=== PATIENT | male | born 1985 | race Caucasian/White ===

== ENCOUNTER 2016-10-05 14:07 | Emergency (ER) | payer BC ==
[~2016-10-05] VITALS: Ht 188 cm; Wt 221.6 kg
[2016-10-05 14:19] VITALS: Ht 188 cm; Wt 221.6 kg
--- NOTE | 2016-10-05 14:23 | ERPDOC ---
Departure Disposition Decision Date: Oct 05, 2016 Disposition Decision Time: 14:21 Disposition: 01 DISCHARGED HOME, SELF-CARE Impression Impression Impression: Primary Impression: Dental abscess Severity: Moderate Condition: Stable Seen By: Mid-level only Patient Instructions: Dental Abscess (ED) Problems/Meds/Labs Reviewed?: Yes Medications reviewed and manag: Yes Additional Instructions: Take the Clindamycin as prescribed. Stop the Amoxicillin. May apply warm compresses to the area as well. If this is not improving at all then please return to ER. Follow up with your dentist next week for reevaluation. Follow up care ordered?: Yes Mental Status: Alert Scripts Clindamycin HCl (Clindamycin HCl) 150 Mg Capsule 2 CAP PO TID, #60 CAP 0 Refills TAKE WITH A FULL GLASS OF WATER TO AVOID ESOPHAGEAL IRRITATION. Prov: NANCY FLORES Lucita HAINES 10/05/16 HPI General Chief Complaint: Toothache Stated Complaint: SWOLLEN R SIDE OF MOUTH Time Seen by Provider: 14:08 Source: patient Exam Limitations: no limitations HPI Dental Initial Comments He started having some right lower jaw dental pain 3 days ago. Saw his dentist and was started on BID Amoxicillin which he has been taking. Last night he noted an increase in swelling on the right lower jaw. Denies any fever or chills. He did go to his dentist office today and got a Rx for [place]. He was wanting to change antibiotics but the dentist did not write a new Rx. Occurred At: home Onset: Gradual Duration: other (For the last 3 days) Severity: moderate Location: R lower 1 - area of swelling Associated Symptoms: facial swelling (right lower jaw), DENIES: cheek swelling , cough, dental trauma, diarrhea, drooling, dyspnea, fever, fractured tooth, gum laceration, gum swelling, headache, high pitched cry/voice, hoarseness, impacted tooth, loose tooth, nausea, retained foreign body, rhinorrhea, sinus drainage, sinus pain, trouble chewing, trouble swallowing, vomiting Allergies: Coded Allergies: No Known Allergies (Unverified , 10/05/16) Past History Past Medical History Pt denies signifigant PMH Surgical History Denies Surgeries Family History Family History: Negative Social History Smoking Status: Never smoker Substance Use Type: does not use Alcohol Intake: none Review of Systems Constitutional Constitutional: DENIES: chills, dizziness, fatigue, fever, weakness Eyes Vision: DENIES: blurring, double vision ENMT Ears: DENIES: drainage, pain Sinuses: DENIES: congestion, rhinorrhea Mouth/Throat: DENIES: painful swallowing, scratchy throat, sore throat Teeth: pain (right lower jaw) Neurological General: DENIES: headache, numbness, tingling, weakness Exam General General Nourishment: well nourished, well developed, appears stated age, no acute distress, adult General Body Habitus: well groomed Vital Signs: RN Vital Signs have been reviewed: Yes [place] Dental Face: swelling (right lower jaw), NOT FOUND: asymmetry, bruising, erythema, tender Jaw: NOT FOUND: asymmetry, trismus Gums: moist, pink, NOT FOUND: exudate, lesion, swelling Teeth: NOT FOUND: caries, fractures, implants, missing Pharynx: NOT FOUND: erythema, exudate, lateral pillar signs, swelling, uvular deviation Tonsils: NOT FOUND: erythema, exudate Neck: NOT FOUND: L anterior adenopathy, L posterior adenopathy, R anterior adenopathy, R posterior adenopathy Skin: NOT FOUND: rash Neurologic RN Documented GCS Eye Opening: Verbal: Motor: Total: Differential Diagnoses Considering: Gingival Abscess, Peritonsillar Abscess, Retropharyngeal Abscess, Caries, Gingivitis, Pharyngitis Strep, Sinusitis, Tooth Avulsion/Extrusion, Tooth Fracture Progress Results/Orders Orders Procedure Category Date Status Time Clindamycin (Cleocin) PHA 10/05/16 Complete 14:30 Medications Current ED Medications Clindamycin HCl (Cleocin) 300 mg O ONCE PO Last administered on 10/05/16t 14:26 ; Start 10/05/16 at 14:30; Stop 10/05/16 at 14:31; Status DC Progress Progress Will have him stop the Amoxicillin and start on some Clindamycin. If this is not getting better then have him return to ER. Otherwise follow up with is PCP in 10 days for reevaluation. NANCY FLORES APRN Oct 05, 2016 14:23
[2016-10-05] MEDS ORDERED: CLINDAMYCIN 300 MG CAPSULE PO ONE (14:30)
[2016-10-05] MEDS ORDERED: AMOX875T2 PO (14:30)
[2016-10-05] MEDS ORDERED: HYDR-4246 PO (14:30)
[2016-10-05] MEDS ORDERED: IBUP-1724 PO (14:30)
[2016-10-05] MEDS ORDERED: CLIN-89 PO (14:31)
[2016-10-05 14:35] VITALS: BP 183/97; PULSE 87; RESP 18; TEMP 98.8; O2SAT 95
== END 2016-10-05 14:35 | disposition home or self-care (01) ==
LOC: ED 14:07
DX: K04.7 Periapical abscess without sinus (principal)